=== PATIENT | male | born 1985 | race Caucasian/White ===

== ENCOUNTER → 2020-09-24 09:27 | Outpatient (CLI) | payer OTHER, SELFPAY ==
--- NOTE | ~2020-09-24 | XR_ITS ---
EXAMINATION: XR knee LT 3V DATE: 09/24/2020 09:48 INDICATION: Left knee pain. TECHNIQUE: 3 views of left knee standing were obtained. COMPARISON: None. FINDINGS: Bone alignment is normal. No fracture. There is mild tricompartmental osteoarthritis charac terized by tiny marginal osteophytes. No knee joint effusion. IMPRESSION: 1. Mild left knee osteoarthritis. Reviewed, dictated and finalized at location B.
== END ==
PROVIDERS: PCP Family Medicine; Visit Provider Physician Assistant
DX: M17.12 Unilateral primary osteoarthritis, left knee (principal)
CPT/HCPCS: 73562

== ENCOUNTER → 2021-12-27 08:52 | Outpatient (CLI) | payer OTHER, SELFPAY ==
--- NOTE | ~2021-12-27 | US_ITS ---
EXAMINATION: US right upper quadrant DATE: 12/27/2021 09:20 INDICATION: elevated liver enzymes TECHNIQUE: Multiple grayscale and Doppler ultrasound images of the right upper quadrant were obtained . COMPARISON: None available. FINDINGS: The visualized portions of the pancreas are normal. The liver demonstrates increased echoge nicity. No surface nodularity. Normal hepatopetal flow in the main portal vein. The gallbladder is no rmal with no abnormal wall thickening, pericholecystic fluid or stones. The common bile duct measures 0.7 cm. There was no sonographic Goodrich sign. IMPRESSION: Echogenic liver, most commonly due to steatosis but also can be seen with hepatitis and fibrosis. Oth erwise normal right upper quadrant ultrasound findings. Reviewed, dictated and finalized at location K. IMPRESSION: Echogenic liver, most commonly due to steatosis but also can be seen with hepat itis and fibrosis. Otherwise normal right upper quadrant ultrasound findings.
== END ==
PROVIDERS: PCP Family Medicine; Visit Provider Physician Assistant
DX: R74.8 Abnormal levels of other serum enzymes (principal)
CPT/HCPCS: 76705

== ENCOUNTER 2023-06-07 15:02 | Outpatient (CLI) | payer OTHER, SELFPAY ==
--- NOTE | ~2023-06-07 | CT_ITS ---
EXAMINATION: CT abdomen pelvis wo con DATE: 06/07/2023 15:21 INDICATION: Lower abdominal pain for 3 weeks. Bloody mucus in stool. TECHNIQUE: Computed tomography (CT) of the abdomen and pelvis was performed without intravenous contr ast. Automated exposure control and iterative reconstruction technique were employed. Exam dose: 171 9.15 mGy-cm total exam DLP. COMPARISON: 12/27/2021 right upper quadrant abdominal ultrasound examination FINDINGS: The lung bases are clear. Normal heart size. No pericardial or pleural effusion. There is diffuse hepatic steatosis. No hepatic space-occupying mass lesion or intrahepatic or extrahe patic bile duct dilatation. The gallbladder appears unremarkable. No pericholecystic fluid or fat str anding. No pancreatic mass lesion or calcification. Normal splenic size. Normal morphology of the adrenal glands. No renal mass lesion or urinary tract calculus or hydroureteronephrosis. The urinary bladder and pros montague gland are unremarkable. No evidence of appendicitis. Mild colonic diverticulosis; no CT evidence diverticulitis. No bowel obs truction, bowel wall thickening, pneumatosis or intraperitoneal free air. Normal caliber of the abdominal aorta. No intraperitoneal or retroperitoneal or pelvic mass lesion or adenopathy or ascites. Small fat-containing left inguinal hernia. Very small fat-containing umbilical hernia. No suspicious osteolytic or osteoblastic lesions. IMPRESSION: Mild colonic diverticulosis; no evidence of diverticulitis Hepatic steatosis Small fat containing left inguinal hernia Very small fat containing umbilical hernia Reviewed, dictated and finalized at Location A. Reviewed, dictated and finalized at location B. R DETAILER
== END 2023-06-07 15:03 | disposition home or self-care (01) ==
LOC: ANHIMG 15:08
PROVIDERS: PCP Family Medicine; Visit Provider Physician Assistant
DX: K62.5 Hemorrhage of anus and rectum (principal); R10.30 Lower abdominal pain, unspecified; R19.5 Other fecal abnormalities; K57.30 Diverticulosis of large intestine without perforation or abscess without bleeding; K76.0 Fatty (change of) liver, not elsewhere classified; K40.90 Unilateral inguinal hernia, without obstruction or gangrene, not specified as recurrent; K42.9 Umbilical hernia without obstruction or gangrene
CPT/HCPCS: 74176

== ENCOUNTER 2023-06-14 00:56 | Day surgery (SDC) | payer OTHER, SELFPAY ==
[2023-06-08 15:57] VITALS: BMI 44.6
--- NOTE | 2023-06-11 11:24 | SUR.PREOP ---
Patient called regarding upcoming procedure. Voicemail left regarding appointment times.
[2023-06-14 11:24] VITALS: BP 147/103; PULSE 88; RESP 18; TEMP 35.9; O2SAT 97
[2023-06-14] MEDS: LACTATED RINGERS 1,000 ML 150 ML IV CONT (11:32)
--- NOTE | 2023-06-14 12:09 | PM.HPGS ---
History of Present Illness History of Present Illness Consent: Risks, benefits, and alternatives have been discussed and questions answered. Patient agrees to proceed with procedure. Chief complaint: Other fecal abnormalities Narrative: Jaimie Viveros is a 37 year old male here for first colonoscopy, few weeks ago had episode of rectal bleeding after cramping and diarrhea, now back to normal. Review of Systems Constitutional: Constitutional: Denies headache(s) and Denies weakness Eyes: Eyes: Denies blurry vision ENT: Reports Normal hearing present, Denies headache(s) and Denies neck pain Cardiovascular: Cardiovascular: Denies chest pain and Denies dyspnea Respiratory: Respiratory: Denies dyspnea Gastrointestinal: Gastrointestinal: Reports no additional gastrointestinal complaints Genitourinary: Genitourinary: Denies dysuria Musculoskeletal: Musculoskeletal: Denies neck pain Integumentary/Breasts: Skin/Breast: Denies dry skin Neurologic: Reports Normal hearing present, Denies headache(s) and Denies weakness Psychiatric: Psychiatric: Denies anxiety Endocrine: Endocrine: Denies change in body appearance Hematologic/Lymphatic: Hematologic/Lymphatic: Denies easy bleeding Allergic/Immunologic: Allergic/Immunologic: Denies urticaria PMFSH Past Medical History Medical History (Updated 06/14/23 @ 12:10 by Lee Vergara MD) Rectal bleeding Surgical History Surgical History (Updated 05/31/23 @ 14:26 by Avelino Mora PA-C) S/P pyloromyotomy, follow-up exam Social History Social History Smoking status: Never smoker Second hand tobacco smoke exposure: Yes Alcohol intake: current Substance use: current Substance use type: marijuana Other substance usage details: THC GUMMIES FOR OCC. INSOMNIA 10MG Living arrangements: with family Additional living arrangements comments: girlfriend Occupation/Education: occupation Gender identity (if verbalized by the patient): Male Sexual Orientation (if Verbalized by the Patient): Straight or Heterosexual Spiritual care concerns: No Meds Home Medications and Allergies Home Medications Medication Instructions Recorded Confirmed Type fluticasone propionate 50 1 spray intranasal DAILY PRN 04/24/20 06/14/23 History mcg/actuation nasal Allergy Symptoms spray,suspension (Allergy Relief (fluticasone)) fluoxetine 20 mg capsule 20 mg PO DAILY 06/08/23 06/14/23 History omeprazole 20 mg capsule,delayed 20 mg PO DAILY 06/08/23 06/14/23 History release Allergies Allergy/AdvReac Type Severity Reaction Status Date / Time No Known Allergies Allergy Verified 06/14/23 11:20 Vital Signs Vital Signs - 24 hr 06/14/23 11:24 Temperature 96.7 F L Pulse Rate 88 Respiratory Rate 18 Blood Pressure 147/103 H Pulse Oximetry 97 Oxygen Delivery Room Air Exam Const: General: comfortable and no acute distress HENMT: Face/Nose/Sinus: Normal nares present Eyes: General: appearance normal, both eyes and all related structures Neck: Neck: no JVD Resp: Auscultation: clear to auscultation bilaterally Cardio: Rate: regular rate Rhythm: regular rhythm GI: Inspection: non-distended GI Palp: Yes Soft to palpation Skin: General skin exam: normal color Neuro: General: gait normal Speech: normal speech Extrem: General: normal to inspection Psych: Mental Status: mental status grossly normal Assessment and Plan Assessment and plan (1) Rectal bleeding: Code(s): K62.5 - Hemorrhage of anus and rectum Status: Acute Assessment and Plan: colonoscopy
--- NOTE | 2023-06-14 12:11 | WPDANESEPPF ---
Anes - Initial Pre Proc Eval Procedure: Operation Date: 06/14/23 12:30 Proposed Procedures p Colonoscopy - Lee Vergara MD Date/Time: 06/14/23 12:11 Surgeon: Lee Vergara MD Pre Op Diagnosis: Other fecal abnormalities Patient Data Age: 37 Gender: M Height: 1.8 m Weight: 142.7 kg Last Vital Signs Temp 96.7 F L 06/14/23 11:24 Pulse 88 06/14/23 11:24 Resp 18 06/14/23 11:24 BP 147/103 H 06/14/23 11:24 Pulse Ox 97 06/14/23 11:24 O2 Del Method Room Air 06/14/23 11:24 Allergies Allergy/AdvReac Type Severity Reaction Status Date / Time No Known Allergies Allergy Verified 06/14/23 11:20 Home Medications Medication Instructions Recorded Confirmed Type fluticasone propionate 50 1 spray intranasal DAILY PRN 04/24/20 06/14/23 History mcg/actuation nasal Allergy Symptoms spray,suspension (Allergy Relief (fluticasone)) fluoxetine 20 mg capsule 20 mg PO DAILY 06/08/23 06/14/23 History omeprazole 20 mg capsule,delayed 20 mg PO DAILY 06/08/23 06/14/23 History release Patient hx anesthesia problems: none Family hx anesthesia problems: none Results Review: All pre-operative results and documents have been reviewed as part of the pre-operative evaluation. [facility], [facility] Past Medical History Medical History (Updated 06/14/23 @ 12:10 by Lee Vergara MD) Rectal bleeding Surgical History Surgical History (Updated 05/31/23 @ 14:26 by Avelino Mora PA-C) S/P pyloromyotomy, follow-up exam Social History Social History Smoking status: Never smoker Second hand tobacco smoke exposure: Yes Alcohol intake: current Substance use: current Substance use type: marijuana Other substance usage details: THC GUMMIES FOR OCC. INSOMNIA 10MG Living arrangements: with family Additional living arrangements comments: girlfriend Occupation/Education: occupation Gender identity (if verbalized by the patient): Male Sexual Orientation (if Verbalized by the Patient): Straight or Heterosexual Spiritual care concerns: No Anes - Eval Final PreProcedure Day of Procedure 06/14/23 12:11 Patient weight: morbidly obese Heart: regular rate and rhythm Lungs: clear to auscultation Airway: Mallampati scale class III Neurological: alert and oriented Last oral intake: >/= 8 hours ASA classification: III Emergent: no Anesthetic plan: proceed Anesthesia type and monitoring: general GIVS and standard monitoring Results Review: All pre-operative results and documents have been reviewed as part of the pre-operative evaluation. Informed Consent: The patient's anesthetic plan and its attendant risks and benefits were discussed with the patient/family/POA. Questions were solicited and answers provided to the satisfaction of the patient/family/POA.
[2023-06-14 12:30] VITALS: BP 121/82; PULSE 90; RESP 20; O2SAT 96
[2023-06-14 12:40] VITALS: BP 118/86; PULSE 86; RESP 19; O2SAT 93
[2023-06-14 12:50] VITALS: BP 118/86; PULSE 86; RESP 19; O2SAT 93
== END 2023-06-14 12:58 | disposition home or self-care (01) ==
PROVIDERS: PCP Family Medicine; Referring Provider Physician Assistant; Visit Provider Internal Medicine Gastroenterology
PROC: 0DJD8ZZ Inspection of Lower Intestinal Tract, Via Natural or Artificial Opening Endoscopic (ICD-10-PCS; CPT 45378; principal; 2023-06-14 12:30)
DX: R19.5 Other fecal abnormalities (principal); K63.5 Polyp of colon; E66.01 Morbid (severe) obesity due to excess calories; Z68.41 Body mass index [BMI] 40.0-44.9, adult
CPT/HCPCS: 45385; 88305; J2704; J7120